=== PATIENT | male | born 1940 | race Caucasian/White ===

== ENCOUNTER 2016-11-14 06:41 | Day surgery (SDC) | payer MEDICARE, BC ==
[2016-11-14] MEDS ORDERED: Midazolam 1 MG/ML 2 ML SDV ONE (07:12)
[2016-11-14] MEDS ORDERED: fentaNYL 100 MCG/2 ML SDV ONE (07:12)
[2016-11-14] MEDS ORDERED: Propofol 200 MG/20 ML SDV ONE ×2 (07:12→07:59)
[2016-11-14] MEDS ORDERED: Lactated Ringers 1,000 ML IV SCH (07:30)
[2016-11-14 10:18] VITALS: BP 123/69
--- NOTE | 2016-11-14 14:11 | OR ---
DATE OF PROCEDURE: 11/14/2016 PREOPERATIVE DIAGNOSIS: History of colon polyps. POSTOPERATIVE DIAGNOSES: 1. Left-sided diverticulosis. 2. Hepatic flexure polyp. SURGEON: Cecilio Wilks MD PROCEDURE PERFORMED: Colonoscopy to the cecum with biopsy and then snare cautery polypectomy of hepatic flexure polyp. ANESTHESIA: IV anesthesia with monitored anesthesia care. INDICATIONS: This is a 76-year-old white male who is referred for a colonoscopy because of a history of colon polyps. He is not sure when his last colonoscopic exam was, about 3-5 years ago. I counseled him for a colonoscopy with possible biopsy and/or polypectomy including risks and alternatives, and he gave his informed consent to proceed. DESCRIPTION OF PROCEDURE: The patient was placed in the left lateral decubitus position. IV anesthesia was administered by the Anesthesia Service. Time-out was held. A rectal exam was performed, which was unremarkable. The flexible video Olympus colonoscope was introduced through his anus, up his rectum, and out his colon all way to the cecum. En route, we saw multiple left-sided diverticula. There was no bleeding or inflammation associated with them. Once the cecum was reached, the scope was slowly withdrawn examining the mucosa throughout. At the hepatic flexure, we saw a polyp. This was medium sized. We initially biopsied it and then placed a snare about it and amputated it. The polyp then disappeared. We did not find the amputated portion, although we did have a good specimen with the biopsy forceps. The scope was then withdrawn further. No other additional new lesions noted. The scope was retroflexed in the rectum with the distal rectum appearing unremarkable. The scope was straightened and removed. He tolerated the procedure well. Cecilio Wilks MD /[id number]
== END 2016-11-14 10:30 | disposition home or self-care (01) ==
LOC: JP.SDS 06:41
PROVIDERS: ATTEND Surgery
DX: Z12.11 Encounter for screening for malignant neoplasm of colon (principal); D12.3 Benign neoplasm of transverse colon; Z86.010 Personal history of colon polyps; K57.30 Diverticulosis of large intestine without perforation or abscess without bleeding; G47.33 Obstructive sleep apnea (adult) (pediatric)
CPT/HCPCS: 45380; 45385; J2250; J2704; J3010; J7120; 88305

== ENCOUNTER 2017-02-20 07:45 | Day surgery (SDC) | payer MEDICARE, BC ==
[2017-02-20] MEDS ORDERED: Bupivacaine 0.5% 50 ML MDV ONE (08:10)
[2017-02-20] MEDS ORDERED: Lidocaine 1% 50 ML MDV ONE (08:10)
[2017-02-20] MEDS ORDERED: Dextrose 5%-Lactated Ringers 1,000 ML IV SCH (08:15)
[2017-02-20] MEDS ORDERED: ceFAZolin 2 GM in Sodium Chloride 0.9% 50 ML IV ONE (08:45)
[2017-02-20] MEDS ORDERED: Midazolam 1 MG/ML 2 ML SDV ONE (08:54)
[2017-02-20] MEDS ORDERED: Propofol 200 MG/20 ML SDV ONE (08:54)
[2017-02-20] MEDS ORDERED: fentaNYL 100 MCG/2 ML SDV ONE (08:54)
[2017-02-20] MEDS ORDERED: Bacitracin Oint 1 GM U/D Packet ONE (09:45)
[2017-02-20 11:53] VITALS: BP 129/51
--- NOTE | 2017-02-21 13:56 | OR ---
DATE OF PROCEDURE: 02/20/2017 PREOPERATIVE DIAGNOSIS: Probable basal cell carcinoma, posterior aspect of the left ear. POSTOPERATIVE DIAGNOSIS: Basal cell carcinoma, posterior aspect of the left ear. OPERATIVE PROCEDURE: Excision of basal cell carcinoma, posterior aspect of the left ear with layered closure ([id number]). ANESTHESIA: Local plus IV sedation. INDICATIONS FOR PROCEDURE: The patient presents with what appeared to be a basal carcinoma located along the posterior aspect of the mid helix. After discussion of the treatment options, the patient wished to proceed with excision. Potential risks of the procedure including bleeding, infection, local recurrence of the process were reviewed, and the patient and wished to proceed. DETAILS OF PROCEDURE: The patient was taken to the operating room and placed in a supine position. After IV sedation was administered, head was turned somewhat toward the right and left ear and surrounding areas were prepped and draped. The line of incision was then mapped out over the skin, which was grossly normal, and that area was then anesthetized with 1% lidocaine mixed with Marcaine. Initially an elliptical shape incision was made and carried down through the skin and subcutaneous tissue, and the soft tissue was excised along with a small rim of underlying cartilage and that specimen delivered from the field. Both the anterior and posterior aspects had thin layers of skin excised to provide a more clear- cut final margin and these were all sent for frozen section. The deep margin and posterior margin appeared to be clear. There was some question whether or not the anterior margin might be involved. At this point, it was felt however that the skin would be overly tight and additional skin was removed and we opted to close it at this point and then watch the patient in terms of any local recurrence, which it could then be excised before getting too large. Given this, the deeper soft tissues were approximated with some 5-0 Vicryl stitch and the skin with a 5-0 Prolene stitch. The lesion itself measured 1.8 cm and the incision length 3.0 cm. Bacitracin was applied. The patient was taken to the recovery room in satisfactory condition. Alex Miranda MD /[id number]
== END 2017-02-20 11:45 | disposition home or self-care (01) ==
LOC: JP.SDS 07:45
PROVIDERS: ATTEND Surgery
DX: C44.219 Basal cell carcinoma of skin of left ear and external auricular canal (principal)
CPT/HCPCS: 11642; 12052; J2250; J2704; J3010; J7042; 88305; 88331

== ENCOUNTER 2017-11-17 07:55 | Day surgery (SDC) | payer MEDICARE, BC ==
[2017-11-17] MEDS ORDERED: Lactated Ringers 1,000 ML IV SCH (08:15)
[2017-11-17] MEDS ORDERED: Propofol 200 MG/20 ML SDV ONE (08:49)
[2017-11-17] MEDS ORDERED: fentaNYL 100 MCG/2 ML SDV ONE (08:49)
[2017-11-17 10:35] VITALS: BP 138/72
--- NOTE | 2017-11-17 14:24 | OR ---
DATE OF PROCEDURE: 11/17/2017 PREOPERATIVE DIAGNOSIS: History of adenomatous colon polyps. POSTOPERATIVE DIAGNOSES: 1. Diverticulosis. 2. Small transverse colon polyp. 3. History of adenomatous colon polyps. PROCEDURES: Colonoscopy to the cecum with biopsy resection of small transverse colon polyp. ANESTHESIA: IV anesthesia with monitored anesthesia care. INDICATION: This 77-year-old white male is referred for a colonoscopy. His last colonoscopic exam was done one year ago, where he had a [id number] serrated sessile adenoma at the hepatic flexure. Prior to that, he has had adenomatous polyps. I counseled him for the colonoscopy with possible biopsy and/or polypectomy including risks and alternatives, and he gave his informed consent to proceed. DESCRIPTION OF PROCEDURE: The patient was placed in the left lateral decubitus position. IV anesthesia was administered by the Anesthesia Service. Time-out was held. A rectal exam was performed, which was unremarkable. The flexible video Olympus colonoscope was introduced through his anus, up his rectum, and out his colon, all the way to the cecum. En route, we saw multiple left-sided diverticula. There was no bleeding or inflammation associated with them. Once the cecum was reached, the scope was slowly withdrawn examining the mucosa throughout. We examined the hepatic flexure quite well and saw no evidence of persistent or recurrent serrated sessile adenoma. The scope was brought slowly back through the colon. In the mid-transverse colon, we saw a small polyp, which was removed with a couple of bites of the biopsy forceps. The scope was withdrawn further with no other new additional lesions seen. The scope was retroflexed in the rectum with the distal rectum appearing unremarkable. The scope was straightened and removed. He tolerated the procedure well. Cecilio Wilks MD /[id number]
== END 2017-11-17 11:00 | disposition home or self-care (01) ==
LOC: JP.SDS 07:55
PROVIDERS: ATTEND Surgery
DX: D12.3 Benign neoplasm of transverse colon (principal); K57.30 Diverticulosis of large intestine without perforation or abscess without bleeding; G47.33 Obstructive sleep apnea (adult) (pediatric); Z86.010 Personal history of colon polyps
CPT/HCPCS: 45380; J2704; J3010; J7120; 88305